=== PATIENT | male | born 1945 | race Caucasian/White ===

== ENCOUNTER → 2017-02-02 | Outpatient (CLI) | payer OTHER, MEDICARE ==
[~2017-02-02] MED LIST: ALPRAZOLAM 0.0.25 M1; ALTACE10 M1; ASPIRIN EC81 M1; BUPROPION XL150 MG; CIPRO250 M1 PO; COREG CR80 MG; CRESTOR20 MG; ENDOCET 5-3251 EACH OR; FISH OIL 1,2001 EAC3; FLOMAX0.4 MG PO; NIASPAN ER 101000 M1; NORCO 5-325 TA1 EACH PO; PLAVIX 75 MG TA75 MG; ZOFRAN4 MG PO
== END ==
LOC: NUC 07:17
DX: I25.10 Atherosclerotic heart disease of native coronary artery without angina pectoris (principal)

== ENCOUNTER → 2018-03-15 | Outpatient (CLI) | payer OTHER, MEDICARE ==
--- NOTE | ~2018-03-15 | 2DMMODE ---
[facility] [place] [address] 2 D/M-MODE ECHOCARDIOGRAM Name: FLORA KHANNA JR Room #: REG [facility]#: [id number] Admission: 03/15/18 Attend Phys: Praneeth Alegre MD Discharge: Date of : 45 Date of Service: 03/15/18 1043 Report #: [id number] THIS REPORT FOR: //name// APPROVED REPORT Study performed: 03/15/2018 09:57:58 EXAM: Comprehensive 2D, Doppler, and color-flow Echocardiogram Patient Location: Out-Patient Status: routine BSA: 2.18 HR: 69 bpm BP: 112/76 mmHg Rhythm: NSR/Irregular Other Information Study Quality: Good Indications CAD. Hx: stent, CHF, pacemaker/defirillator, HTN, HLP 2D Dimensions RVDd: 39.87 mm IVSd: 10.94 (7-11mm) LVOT Diam: 22.22 (18-24mm) LVDd: 64.04 mm PWd: 8.43 (7-11mm) Ascending Ao: 36.67 (22-36mm) LVDs: 54.13 (25-40mm) Aortic Root: 33.85 mm Volumes Left Atrial Volume (Systole) Single Plane 4CH: 66.83 mL Single Plane 2CH: 81.19 mL LA ESV Index: 37.00 mL/m2 Aortic Valve AoV Peak Will.: 1.17 m/s AO Peak Gr.: 5.46 mmHg LVOT Max P.41 mmHg LVOT Max V: 0.78 m/s VIKI Vmax: 2.58 cm2 Mitral Valve E/A Ratio: 0.8 MV Decel. Time: 394.13 ms MV E Max Will.: 0.69 m/s [facility] [place] [place] [address] 2 D/M-MODE ECHOCARDIOGRAM Name: FLORA KHANNA Room #: [facility]#: [id number] Admission: 03/15/18 Attend Phys: Praneeth Alegre MD Discharge: Date of : 45 Date of Service: 03/15/18 1043 Report #: [id number] MV A Will.: 0.91 m/s MV PHT: 114.30 ms IVRT: 87.66 ms Pulmonary Valve PV Peak Will.: 0.90 m/s PV Peak Gr.: 3.21 mmHg Pulmonary Vein P Vein S: 0.47 m/s P Vein A: 0.26 m/s P Vein D: 0.37 m/s P Vein A Dur.: 110.7 msec P Vein S/D Ratio: 1.27 Tricuspid Valve TR Peak Will.: 2.16 m/s RAP Estimate: 5.00 mmHg TR Peak Gr.: 18.72 mmHg PA Pressure: 24.00 mmHg Left Ventricle Left ventricle is dilated. There is normal left ventricular wall thickness. Left ventricular systolic function is moderate to severely decreased. LVEF is 35%. Mild diastolic dysfunction is present (impaired relaxation pattern). Right Ventricle The right ventricle is normal size. Pacemaker lead is present in the right ventricle. Atria Left atrium is mildly dilated. Right atrium is at the upper limits of normal. Aortic Valve The aortic valve is normal in structure. No aortic regurgitation is present. There is no aortic valvular stenosis. Mitral Valve The mitral valve is normal in structure. Moderate mitral regurgitation. Tricuspid Valve The tricuspid valve is normal in structure. Trace tricuspid regurgitation. Estimated PAP is 25mmHg. Pulmonic Valve The pulmonary valve is normal in structure. Trace pulmonic regurgitation. [facility] [address] [place] [address] 2 D/M-MODE ECHOCARDIOGRAM Name: FLORA KHANNA Room #: REG [facility]#: [id number] Admission: 03/15/18 Attend Phys: Praneeth Alegre MD Discharge: Date of : 45 Date of Service: 03/15/18 1043 Report #: [id number] Great Vessels The aortic root is normal in size. The ascending aorta is normal in size. IVC is normal in size and collapses >50% with inspiration. Pericardium There is no pericardial effusion. <Conclusion> Left ventricle is dilated. Left ventricular systolic function is moderate to severely decreased. Mild diastolic dysfunction is present (impaired relaxation pattern). The right ventricle is normal size. Left atrium is mildly dilated. The aortic valve is normal in structure. Moderate mitral regurgitation. Trace tricuspid regurgitation. Estimated PAP is 25mmHg. <ELECTRONICALLY SIGNED> By: Praneeth Alegre MD 03/15/18 [phone] Praneeth Alegre MD /INF
== END ==
LOC: CV 07:52
DX: I34.0 Nonrheumatic mitral (valve) insufficiency (principal); I25.10 Atherosclerotic heart disease of native coronary artery without angina pectoris; I11.0 Hypertensive heart disease with heart failure; I50.9 Heart failure, unspecified; E78.5 Hyperlipidemia, unspecified

== ENCOUNTER → 2018-06-28 | Outpatient (CLI) | payer OTHER, MEDICARE ==
[~2018-06-28] VITALS: Ht 188 cm; Wt 97.5 kg
[~2018-06-28] MED LIST changes: +COREG25 MG PO; +UNICOMPLEX M TA1 TA1 PO
--- NOTE | ~2018-06-28 | P ---
[facility] [place] [address] PROCEDURE REPORT Name: FLORA KHANNA JR Room #: REG [facility]#: [id number] Admission: 06/28/18 Attend Phys: Tahir Powers MD Discharge: Date of : 45 Report #: [id number] THIS REPORT FOR: //name// CC: Praneeth Lora PROCEDURE: ICD generator exchange PREOPERATIVE DIAGNOSIS: Implantable cardioverter-defibrillator at the elective replacement interval. POSTOPERATIVE DIAGNOSIS: Implantable cardioverter-defibrillator at the elective replacement interval. HISTORY: The patient is a 73-year-old status post ICD implantation, whose device is at the elective replacement interval. He is here for generator exchange. ANESTHESIA: The patient underwent MAC anesthesia with no anesthesia related complications. DESCRIPTION OF PROCEDURE: The patient underwent informed consent. We discussed the details of the procedure including the risks, which include but not limited to bleeding, infection, need for possible lead revisions. He understood these risks and is willing to proceed. The patient was brought to the EP laboratory in fasting and sedated state, prepped and draped in a sterile fashion, received IV vancomycin for antibiotic prophylaxis. Next, I injected lidocaine at the prior incision site. Incision was made, the chronic pocket was entered. The device was removed from the pocket. I removed part of the anterior capsule and I expanded the pocket inferiorly. Next, the device was disconnected. The new device was connected and found to be functioning normally. The device was placed in the pocket. The pocket was irrigated with vancomycin and the pocket was closed in 3 layers using 2-0 for the deep layer, 3-0 for the mid layer and surgical glue was placed to the outer skin layer. The patient awoke neurologically and hemodynamically intact. No complications and no significant bleeding. The explanted device was a Medtronic model number [id number], serial # [id number]. This was implanted in 12/2010. The newly implanted device was a Medtronic model number [id number], serial #[id number]. The atrial lead was a Medtronic model #4076, serial # [id number] with a P-wave of 1.8 millivolts, pacing impedance of 424 ohms with a pacing threshold 0.5 volts at 0.4 milliseconds. The RV lead was a Medtronic model #6947, serial #[id number]. This lead demonstrated R-wave of 3.1 millivolts, pacing impedance of 444 ohms, normal shock impedances and the pacing threshold 0.5 volts at 0.4 milliseconds. The device was programmed to [address] [address] PROCEDURE REPORT Name: FLORA KHANNA JR Room #: REG [facility].#: [id number] Admission: 06/28/18 Attend Phys: Tahir Powers MD Discharge: Date of : 45 Report #: [id number] the DDD 60-130 mode. There was a monitor zone at 400 milliseconds for VT. The VF zone was set at 320 milliseconds with ATP while charging, followed by max output shocks. CONCLUSIONS: 1. Successful ICD generator exchange. 2. Satisfactory atrial and ventricular pacing and sensing thresholds. By: [id number] Tahir Powers MD /nt
[2018-06-28 08:47] VITALS: BP 133/76
[2018-06-28 09:21] LABS: ABSOLUTE NEUTROPHILS 3.9 thou/uL (1.4-8.2); BASOPHILS 1.4 % (0.0-2.0); EOSINOPHILS 1.9 % (0.0-3.0); HEMATOCRIT 40.5 % (42.0-52.0); HEMOGLOBIN 13.7 gm/dL (14.0-18.0); LYMPHOCYTES 35.6 % (24.0-44.0); MCH 30.9 pg (26.0-34.0); MCHC 33.9 g/dL (28.0-37.0); MCV 91.2 fL (80.0-100.0); MONOCYTES 8.2 % (1.0-8.0); PLATELET COUNT 138 thou/uL (150-400); POLYS 52.9 % (36.0-66.0); RBC 4.44 mil/uL (4.50-6.00); RDW 14.6 % (10.5-14.5); WBC 7.3 thou/uL (4.0-11.0)
[2018-06-28 09:29] LABS: CALCIUM 8.9 mg/dL (8.5-10.1); POTASSIUM 4.2 mmol/L (3.5-5.1)
[2018-06-28 09:35] LABS: ALBUMIN 3.6 g/dL (3.4-5.0); APTT 27.1 Seconds (24.5-32.8); PROTIME 10.9 Seconds (9.3-11.4); TOTAL BILIRUBIN 0.5 mg/dL (<0.1-1.0); TOTAL PROTEIN 7.1 g/dL (6.4-8.2)
== END | disposition home or self-care (01) ==
LOC: CATH 08:20
PROVIDERS: Internal Medicine Cardiovascular Disease
DX: Z45.02 Encounter for adjustment and management of automatic implantable cardiac defibrillator (principal); I42.9 Cardiomyopathy, unspecified; I25.2 Old myocardial infarction; I50.9 Heart failure, unspecified; E78.5 Hyperlipidemia, unspecified; Z87.891 Personal history of nicotine dependence; Z90.49 Acquired absence of other specified parts of digestive tract; Z79.01 Long term (current) use of anticoagulants; Z98.890 Other specified postprocedural states; Z82.49 Family history of ischemic heart disease and other diseases of the circulatory system; Z79.899 Other long term (current) drug therapy; Z88.0 Allergy status to penicillin; Z79.82 Long term (current) use of aspirin
CPT/HCPCS: 62110; 62900; 70005

== ENCOUNTER → 2019-04-01 | Outpatient (CLI) | payer OTHER, MEDICARE ==
--- NOTE | 2019-04-01 10:11 | 2DMMODE ---
[facility] [place] [address] 2 D/M-MODE ECHOCARDIOGRAM Name: FLORA KHANNA Room #: REG [facility]#: [id number] Admission: 04/01/19 Attend Phys: Praneeth Alegre MD Discharge: Date of : 45 Report #: [id number] THIS REPORT FOR: //name// APPROVED REPORT Study performed: 04/01/2019 08:33:01 EXAM: Comprehensive 2D, Doppler, and color-flow Echocardiogram Patient Location: Out-Patient Room #: Echo lab 2 Status: routine BSA: 2.24 HR: 81 bpm BP: 128/84 mmHg Rhythm: NSR Other Information Study Quality: Good Indications ICD: CAD Cardiomyopathy 2D Dimensions RVDd: 46.61 mm IVSd: 9.61 (7-11mm) LVOT Diam: 21.73 (18-24mm) LVDd: 66.67 mm PWd: 10.46 (7-11mm) Ascending Ao: 28.97 (22-36mm) LVDs: 55.82 (25-40mm) Aortic Root: 35.39 mm IVC: 23.00 mm Volumes Left Atrial Volume (Systole) Single Plane 4CH: 68.68 mL Single Plane 2CH: 75.03 mL LA ESV Index: 35.00 mL/m2 Aortic Valve AoV Peak Will.: 1.35 m/s AO Peak Gr.: 7.24 mmHg LVOT Max P.84 mmHg LVOT Max V: 0.98 m/s VIKI Vmax: 2.70 cm2 Mitral Valve E/A Ratio: 0.7 [facility] [address] [place] [address] 2 D/M-MODE ECHOCARDIOGRAM Name: FLORA KAHNNA Room #: REG [facility]#: [id number] Admission: 04/01/19 Attend Phys: Praneeth Alegre MD Discharge: Date of : 45 Report #: [id number] MV Decel. Time: 426.71 ms MV E Max Will.: 0.71 m/s MV A Will.: 0.97 m/s MV PHT: 123.75 ms IVRT: 110.73 ms Pulmonary Valve PV Peak Will.: 0.95 m/s PV Peak Gr.: 3.62 mmHg Pulmonary Vein P Vein S: 0.64 m/s P Vein A: 0.17 m/s P Vein D: 0.31 m/s P Vein A Dur.: 96.9 msec P Vein S/D Ratio: 2.06 Tricuspid Valve TR Peak Will.: 2.45 m/s TR Peak Gr.: 24.09 mmHg PA Pressure: 29.00 mmHg Left Ventricle Left ventricle is dilated. There is akinesis in the inferior wall. There is normal left ventricular wall thickness. Left ventricular ejection fraction is moderate to severely decreased. LVEF is 35%. Grade I - abnormal relaxation pattern. Right Ventricle The right ventricular systolic function is normal. Device lead is present in the right ventricle. Atria Left atrium is dilated. Right atrium is dilated. Device lead is present in the right atrium. Aortic Valve The aortic valve is normal in structure. Aortic valve is calcified. No aortic regurgitation is present. There is no aortic valvular stenosis. Mitral Valve The mitral valve is normal in structure. Mild mitral regurgitation. No evidence of mitral valve stenosis. Tricuspid Valve The tricuspid valve is normal in structure. There is trace tricuspid regurgitation. Estimated PAP 29 mmHg. There is no pulmonary hypertension. [facility] [address] [place] [address] 2 D/M-MODE ECHOCARDIOGRAM Name: CLEMENCIAFLORA OLMSTEADAR Room #: REG [facility]#: [id number] Admission: 04/01/19 Attend Phys: Praneeth Alegre MD Discharge: Date of : 45 Report #: [id number] Pulmonic Valve The pulmonary valve is normal in structure. There is no pulmonic valvular regurgitation. Great Vessels The aortic root is normal in size. IVC is dilated and collapses >50% with inspiration. Pericardium There is no pericardial effusion. <Conclusion> Left ventricle is dilated. There is normal left ventricular wall thickness. Left ventricular ejection fraction is moderate to severely decreased. Grade I - abnormal relaxation pattern. Device lead is present in the right ventricle. Left atrium is dilated. Aortic valve is calcified. Mild mitral regurgitation. There is trace tricuspid regurgitation. Estimated PAP 29 mmHg. <ELECTRONICALLY SIGNED> By: Praneeth Alegre MD 04/01/19 1011 1011 1011 Praneeth Alegre MD /INF
== END ==
LOC: CV 08:18
DX: I08.0 Rheumatic disorders of both mitral and aortic valves (principal); I42.9 Cardiomyopathy, unspecified; I25.10 Atherosclerotic heart disease of native coronary artery without angina pectoris; Z88.0 Allergy status to penicillin

== ENCOUNTER → 2019-07-16 | Outpatient (CLI) | payer MEDICARE | LOC: SJCVC 09:44 | DX: I21.19 ST elevation (STEMI) myocardial infarction involving other coronary artery of inferior wall (principal); R94.31 Abnormal electrocardiogram [ECG] [EKG]; I47.2 Ventricular tachycardia; I25.5 Ischemic cardiomyopathy; Z95.810 Presence of automatic (implantable) cardiac defibrillator ==

== ENCOUNTER → 2019-11-12 | Outpatient (CLI) | payer OTHER | LOC: SJCVCIMAG 10-28 09:03 | PROVIDERS: ATTEND Internal Medicine Cardiovascular Disease | DX: Z45.02 Encounter for adjustment and management of automatic implantable cardiac defibrillator (principal); I49.3 Ventricular premature depolarization; I25.5 Ischemic cardiomyopathy; I25.10 Atherosclerotic heart disease of native coronary artery without angina pectoris; E78.00 Pure hypercholesterolemia, unspecified; I10 Essential (primary) hypertension; E78.5 Hyperlipidemia, unspecified; I25.2 Old myocardial infarction; Z79.82 Long term (current) use of aspirin; Z79.899 Other long term (current) drug therapy; Z88.0 Allergy status to penicillin; Z88.8 Allergy status to other drugs, medicaments and biological substances; Z95.810 Presence of automatic (implantable) cardiac defibrillator; Z98.61 Coronary angioplasty status; Z87.891 Personal history of nicotine dependence ==

== ENCOUNTER → 2020-07-28 | Outpatient (CLI) | payer OTHER | LOC: SJCVC 09:58 | PROVIDERS: ATTEND Internal Medicine Cardiovascular Disease | DX: R94.31 Abnormal electrocardiogram [ECG] [EKG] (principal); I25.5 Ischemic cardiomyopathy; I25.10 Atherosclerotic heart disease of native coronary artery without angina pectoris; I47.2 Ventricular tachycardia; E78.5 Hyperlipidemia, unspecified; I10 Essential (primary) hypertension; I25.2 Old myocardial infarction; Z79.82 Long term (current) use of aspirin; Z87.891 Personal history of nicotine dependence; Z79.899 Other long term (current) drug therapy; Z95.810 Presence of automatic (implantable) cardiac defibrillator ==

== ENCOUNTER → 2020-11-26 | Outpatient (CLI) | payer OTHER | LOC: SJCVCIMAG 08:01 | PROVIDERS: ATTEND Internal Medicine Cardiovascular Disease | DX: R94.31 Abnormal electrocardiogram [ECG] [EKG] (principal); I34.0 Nonrheumatic mitral (valve) insufficiency; I25.10 Atherosclerotic heart disease of native coronary artery without angina pectoris; I25.5 Ischemic cardiomyopathy; E78.00 Pure hypercholesterolemia, unspecified; I10 Essential (primary) hypertension; E78.5 Hyperlipidemia, unspecified; I25.2 Old myocardial infarction; Z95.810 Presence of automatic (implantable) cardiac defibrillator; Z88.0 Allergy status to penicillin; Z79.82 Long term (current) use of aspirin; Z79.899 Other long term (current) drug therapy; Z72.89 Other problems related to lifestyle; Z87.891 Personal history of nicotine dependence ==